=== PATIENT | female | born 1975 | race Caucasian/White ===

== ENCOUNTER 2016-02-25 23:16 | Emergency (ER) | payer OTHER ==
[2016-02-25 23:19] VITALS: BP 112/74; PULSE 70; RESP 18; TEMP 97.1
[2016-02-26] MEDS ORDERED: KETOROLAC 60 MG/2 ML VIAL IM STA (00:14)
--- NOTE | 2016-02-26 00:14 | ED ---
General Adult HPI - General Chief complaint: Extremity Problem,Nontraumatic Stated complaint: Hand Pain Time Seen by Provider: 02/25/16 23:35 Source: patient, RN notes reviewed, old records reviewed Mode of arrival: ambulatory Limitations: no limitations - History of Present Illness Initial comments: This is a 4-year-old female ER for evaluation. Patient is here for reevaluation of right wrist pain. patient is right-handed. patient has history of bony injury to that right and right wrist. no significant recent injury. she states she hasn't tingling and pain shooting down her right wrist and weakness in her middle finger. patient denies pain going up to her elbow but she does say the numbness and james does shoot up and down her arm. patient denies any other complaints. - Related Data Home Medications Medication Instructions Recorded Confirmed ALPRAZolam [Xanax] 0.25 mg PO BID PRN 02/25/16 02/25/16 Allergies Allergy/AdvReac Type Severity Reaction Status Date / Time No Known Allergies Allergy Verified 02/25/16 23:30 Review of Systems ROS Statement: Those systems with pertinent positive or pertinent negative responses have been documented in the HPI. ROS Other: All systems not noted in ROS Statement are negative. Past Medical History Past Medical History: No Reported History History of Any Multi-Drug Resistant Organisms: None Reported Past Surgical History: Hysterectomy, Tubal Ligation Additional Past Surgical History / Comment(s): D&C Past Psychological History: No Psychological Hx Reported Smoking Status: Current every day smoker Past Alcohol Use History: Occasional Past Drug Use History: None Reported General Exam Limitations: no limitations General appearance: alert, in no apparent distress Head exam: Present: atraumatic, normocephalic, normal inspection Eye exam: Present: normal appearance, PERRL, EOMI. Absent: scleral icterus, conjunctival injection, periorbital swelling ENT exam: Present: normal exam, mucous membranes moist Neck exam: Present: normal inspection. Absent: tenderness, meningismus, lymphadenopathy Respiratory exam: Present: normal lung sounds bilaterally. Absent: respiratory distress, wheezes, rales, rhonchi, stridor Cardiovascular Exam: Present: regular rate, normal rhythm, normal heart sounds. Absent: systolic murmur, diastolic murmur, rubs, gallop, clicks GI/Abdominal exam: Present: soft, normal bowel sounds. Absent: distended, tenderness, guarding, rebound, rigid Extremities exam: Present: normal inspection, full ROM, normal capillary refill , other (Right wrist positive Tinel, positive Phalen's, decreased okay sign). Absent: tenderness, pedal edema, joint swelling, calf tenderness Back exam: Present: normal inspection Neurological exam: Present: alert, oriented X3, CN II-XII intact Psychiatric exam: Present: normal affect, normal mood Skin exam: Present: warm, dry, intact, normal color. Absent: rash Course Vital Signs 02/25/16 23:17 Temperature 97.1 F L Pulse Rate 70 Respiratory 18 Rate Blood Pressure 112/74 O2 Sat by Pulse 99 Oximetry Medical Decision Making - Medical Decision Making 40 female here for evaluation of wrist pain. Right wrist pain, she does have positive Temple, positive Phalen's, positive reverse Phalen's. Patient does have paresthesia type pain in right wrist mild weakness of the median nerve. Patient will be discharged home, continue anti-inflammatories, encouraged use wrist splint and discharged Disposition Clinical Impression: Carpal tunnel syndrome of right wrist Disposition: HOME SELF-CARE Condition: Good Instructions: Paresthesia (ED) Referrals: Ronni Rowe MD [STAFF PHYSICIAN] - 1-2 days
== END 2016-02-26 01:01 | disposition home or self-care (01) ==
LOC: EC 23:16
DX: G56.01 Carpal tunnel syndrome, right upper limb (principal); F17.200 Nicotine dependence, unspecified, uncomplicated
CPT/HCPCS: 99282; 96372; J1885

== ENCOUNTER 2016-03-29 11:55 | Emergency (ER) | payer OTHER ==
[2016-03-29] MEDS ORDERED: DEXAMETHASONE 4 MG TAB PO STA (12:11)
[2016-03-29] MEDS ORDERED: ONDANSETRON ODT 4 MG TAB PO STA (12:11)
--- NOTE | 2016-03-29 12:21 | ED ---
General Adult HPI - General Chief complaint: Upper Respiratory Infection Stated complaint: SOB, CHEST CONGESTION, SHAKY Time Seen by Provider: 03/29/16 12:02 Source: patient, family, RN notes reviewed, old records reviewed Mode of arrival: wheelchair Limitations: no limitations - History of Present Illness Initial comments: 40-year-old female presenting for cough and sinus congestion. She states her symptoms have been going on for the past 3 days or so. She states she is trying [id number] medications like NyQuil without significant relief. She states she's also been feeling some anxiety. She's dehydrated. She did take some Xanax earlier that didn't seem to help her symptoms either. She did also have 1 episode of diarrhea this morning. She denies any abdominal pain. She does state she has some nausea but has not vomited. She denies any fevers or chills. She does admit to tobacco abuse. - Related Data Home Medications Medication Instructions Recorded Confirmed ALPRAZolam [Xanax] 0.25 mg PO BID PRN 02/25/16 03/29/16 D-Methorphan/PE/Acetaminophen 1 cap PO Q6H PRN 03/29/16 03/29/16 [Vicks Dayquil Liquicaps] Ibuprofen [Motrin] 600 mg PO Q8HR PRN 03/29/16 03/29/16 Previous Rx's Medication Instructions Recorded Ondansetron Odt [Zofran Odt] 4 mg PO Q8HR PRN #12 tab 03/29/16 Allergies Allergy/AdvReac Type Severity Reaction Status Date / Time No Known Allergies Allergy Verified 03/29/16 12:38 Review of Systems ROS Statement: Those systems with pertinent positive or pertinent negative responses have been documented in the HPI. ROS Other: All systems not noted in ROS Statement are negative. Past Medical History Past Medical History: No Reported History History of Any Multi-Drug Resistant Organisms: None Reported Past Surgical History: Hysterectomy, Tubal Ligation Additional Past Surgical History / Comment(s): D&C Past Psychological History: No Psychological Hx Reported Smoking Status: Current every day smoker Past Alcohol Use History: Occasional Past Drug Use History: None Reported General Exam - General Exam Comments Initial Comments: General: Awake and Alert. No acute distress. Does not appear acutely ill. Eyes: FIORELLA, EOM intact. No nystagmus. No scleral icterus. HENT: Atraumatic, normocephalic. Mucous membranes moist. Trachea midline. Nasal mucosal edema and clear rhinorrhea. No posterior pharyngeal edema or erythema. No tonsillar edema. Neck: The neck is supple, there is no tenderness or JVD. Cardiovascular: Regular rate and rhythm. No murmur, rub, or gallop is appreciated. Distal pulses intact. Respiratory: Lungs are clear to auscultation bilaterally. No wheezes, rales, rhonchi. No respiratory distress. Gastrointestinal: Soft, Nontender. No rebound or guarding. Non-distended. No masses or organomegaly noted. No CVA tenderness. Musculoskeletal: No tenderness. Normal ROM. No gross deformity. No strength deficits. Neurological: A&Ox3. CN II-XII grossly intact, There are no obvious motor or sensory deficits. Coordination appears grossly intact. Speech is normal. Skin: Skin is warm and dry and no rashes or lesions are noted. Psychiatric: Cooperative, appears anxious, normal judgment. Limitations: no limitations Course Vital Signs 03/29/16 03/29/16 11:56 12:56 Temperature 97.0 F L 97.4 F L Pulse Rate 91 68 Respiratory 20 18 Rate Blood Pressure 121/60 96/50 O2 Sat by Pulse 100 99 Oximetry Medical Decision Making - Medical Decision Making 40-year-old female presenting for URI symptoms as well as diarrhea and nausea. Discussed likely viral syndrome. Vitals are otherwise stable on exam. She does not appear septic at this time. Chest x-ray was performed which has no acute process. Influenza testing was performed and negative. Discussed supplemental care with ooky-aqn-flbhknq medications. Patient was given a dose of Decadron to help with sinusitis. She was able to tolerate PO without issue. Discussed close follow-up with her PCP. Discussed concerning signs and symptoms for immediate return to the ED. Patient is otherwise stable for discharge at this time. Patient is agreeable with plan of discharge home. - Lab Data Lab Results 03/29/16 Range/Units 12:30 Influenza Type A RNA Not Detected (Not Detectd) Influenza Type B (PCR) Not Detected (Not Detectd) - Radiology Data Radiology results: report reviewed, image reviewed Disposition Clinical Impression: URI (upper respiratory infection), Nausea, Diarrhea, Tobacco abuse Disposition: HOME SELF-CARE Condition: Stable Instructions: Upper Respiratory Infection (ED), Acute Diarrhea (ED), How to Stop Smoking (ED) Additional Instructions: Make sure you stay well hydrated by drinking plenty of fluids. Prescriptions: Ondansetron Odt [Zofran Odt] 4 mg PO Q8HR PRN #12 tab PRN Reason: Nausea Referrals: None,Stated [Primary Care Provider] - 1-2 days Time of Disposition: 13:08
--- NOTE | 2016-03-29 12:54 | XR ---
EXAMINATION TYPE: XR chest 2V DATE OF EXAM: 03/29/2016 12:34 PM COMPARISON: NONE HISTORY: Pain TECHNIQUE: Frontal and lateral views of the chest are obtained. FINDINGS: There is no focal air space opacity, pleural effusion, or pneumothorax seen. The cardiac silhouette size is within normal limits. The osseous structures are intact. IMPRESSION: No acute cardiopulmonary process.
[2016-03-29 12:59] VITALS: BP 96/50; PULSE 68; RESP 18; TEMP 97.4
== END 2016-03-29 13:21 | disposition home or self-care (01) ==
LOC: EC 11:55
DX: J06.9 Acute upper respiratory infection, unspecified (principal); R19.7 Diarrhea, unspecified; F17.200 Nicotine dependence, unspecified, uncomplicated
CPT/HCPCS: 87502; 71020; 99283; J8540

== ENCOUNTER → 2016-05-20 | Outpatient (CLI) | payer OTHER ==
[2016-05-20 09:23] LABS: Basophils % (A) 1 %; CH 30.9; CHCM 32.6; Eosinophils # (A) 0.3 k/uL (0-0.7); Eosinophils % (A) 5 %; HDW 2.18; HGB 13.9 gm/dL (11.4-16.0); Luc # (Auto) 0.21; Luc % (Auto) 4; Lymphocytes % (A) 33 %; MCH 31.6 pg (25.0-35.0); MCHC 33.2 g/dL (31.0-37.0); MCV 95.1 fL (80.0-100.0); Mean Platelet Volume 9.2; Monocytes # (A) 0.3 k/uL (0-1.0); Monocytes % (A) 5 %; Neutrophils # (A) 3.2 k/uL (1.3-7.7); Neutrophils % (A) 53 %; RBC 4.41 m/uL (3.80-5.40); RDW 12.7 % (11.5-15.5)
[2016-05-20 09:43] LABS: ALT 19 U/L (9-52); AST 20 U/L (14-36); Alkaline Phosphatase 42 U/L (38-126); Anion Gap 8 mmol/L; Blood Urea Nitrogen 15 mg/dL (7-17); Calcium 9.4 mg/dL (8.4-10.2); Carbon Dioxide 27 mmol/L (22-30); Chloride 106 mmol/L (98-107); Cholesterol 179 mg/dL (<200); Glucose 90 mg/dL (74-99); HDL Cholesterol 46 mg/dL (40-60); Non-African American GFR(MDRD) >60 (>60 ml/min/1.73 sqM); Potassium 4.9 mmol/L (3.5-5.1); Sodium 141 mmol/L (137-145); Total Bilirubin 0.6 mg/dL (0.2-1.3); Total Protein 7.1 g/dL (6.3-8.2); Triglycerides 202 mg/dL (<150)
[2016-05-20 10:35] LABS: Erythrocyte Sedimentation Rate 4 mm/hr (0-20)
== END | disposition home or self-care (01) ==
LOC: LABWHC1 08:28
PROVIDERS: ATTEND Family Medicine
DX: Z00.00 Encounter for general adult medical examination without abnormal findings (principal); R27.0 Ataxia, unspecified; R20.8 Other disturbances of skin sensation; E55.9 Vitamin D deficiency, unspecified; M62.40 Contracture of muscle, unspecified site
CPT/HCPCS: 36415; 80053; 80061; 82306; 84443; 85025; 85652; 86618

== ENCOUNTER → 2016-05-28 | Outpatient (CLI) | payer OTHER | END | disposition home or self-care (01) | LOC: RADMRIMAIN 09:40 | PROVIDERS: ATTEND Family Medicine | DX: Z53.9 Procedure and treatment not carried out, unspecified reason (principal) ==

== ENCOUNTER 2016-06-02 14:57 | Emergency (ER) | payer OTHER ==
[2016-06-02 15:15] VITALS: RESP 18
--- NOTE | 2016-06-02 16:50 | ED ---
General Adult HPI - General Chief complaint: Anxiety Stated complaint: Panic attack Time Seen by Provider: 06/02/16 16:27 Source: patient, family, RN notes reviewed Mode of arrival: ambulatory - History of Present Illness Initial comments: Chief complaint history of present illness is a 41-year-old female here with her . Patient reports that she has anxiety and sometimes get overly panicked. Occasionally feel short of breath. Denies any suicidal thoughts. The symptoms are getting worse for the past week. She is being worked up for MS. She was unable to do an MRI last week because of the anxiety going inside the MRI tube. - Related Data Home Medications Medication Instructions Recorded Confirmed Naproxen Sodium [Aleve] 220 mg PO BID PRN 06/02/16 06/02/16 Allergies Allergy/AdvReac Type Severity Reaction Status Date / Time No Known Allergies Allergy Verified 06/02/16 16:56 Review of Systems ROS Statement: Those systems with pertinent positive or pertinent negative responses have been documented in the HPI. Review of systems. Patient's denying any headache or visual acuity changes at this time. She reports that when she gets anxious she can hear things going around her. Denies chest pain shortness breath GI/ problems and I suicidal thoughts. All things reviewed. Past medical problem patient used to be on medications for anxiety depression for several months but made her feel paranoid sensation stopped. Around the same time start him symptoms that is causing her physician to work. The possibility of MS. Patient is unable to tolerate being in the MRI machine last week. She will be talking to her family physician about medications to make is that she can do that. Patient surgeries include hysterectomy preceded by D&C and tubal ligation. Family history heart disease. Patient denies any ALLERGIES she does smoke strongly encouraged stop drinks alcohol socially. ROS Other: All systems not noted in ROS Statement are negative. Past Medical History Past Medical History: No Reported History History of Any Multi-Drug Resistant Organisms: None Reported Past Surgical History: Hysterectomy, Tubal Ligation Additional Past Surgical History / Comment(s): D&C Past Psychological History: No Psychological Hx Reported, Anxiety, Depression Smoking Status: Current every day smoker Past Alcohol Use History: Occasional Past Drug Use History: None Reported General Exam - General Exam Comments Initial Comments: General: The patient is awake and alert, in no distress, and does not appear acutely ill. States her complaint is feeling overly anxious at times. History of anxiety and depression. Eye: Pupils are equal, round and reactive to light, extra-ocular movements are intact ; there is normal conjunctiva bilaterally. No signs of icterus. Ears, nose, mouth and throat: There are moist mucous membranes and no oral lesions. Neck: The neck is supple, there is no tenderness , no anterior cervical lymphadenopathy, thyroid not enlarged. Cardiovascular: There is a regular rate and rhythm. No murmur, rub or gallop is appreciated. Respiratory: Lungs are clear to auscultation, respirations are non-labored, breath sounds are equal. No wheezes, stridor, rales, or rhonchi. Gastrointestinal: Soft, non-distended, non-tender abdomen without masses or organomegaly noted. There is no rebound or guarding present. No CVA tenderness. Bowel sounds are unremarkable. Back: There is no tenderness to palpation in the midline. There is no obvious deformity. No rashes noted. Musculoskeletal: Normal ROM, no tenderness, There is no pedal edema. There is no calf tenderness or swelling. Sensation intact. Pulses equal bilaterally 2+. Neurological: CN II-XII intact, There are no obvious motor or sensory deficits. Coordination appears grossly intact. Speech is normal. No focal or lateralizing findings. Skin: Skin is warm and dry and no rashes or lesions are noted. Psychiatric: Cooperative, past history of depression and anxiety. No suicidal thoughts. Course Vital Signs 06/02/16 06/02/16 15:10 17:52 Temperature 98.7 F 98.0 F Pulse Rate 82 68 Respiratory 18 18 Rate Blood Pressure 117/66 106/65 O2 Sat by Pulse 100 97 Oximetry Medical Decision Making - Medical Decision Making Urine triage positive for benzodiazepines. The patient was evaluated by the psychiatric nurse she discussed the case with the psychiatrist. The patient will be seeing her family doctor tomorrow to see the patient be given Xanax 0.5 to be taken to rest and to help her with her anxiety. - Lab Data Lab Results 06/02/16 Range/Units 16:55 Urine Opiates Screen Not Detected (NotDetected) Ur Oxycodone Screen Not Detected (NotDetected) Urine Methadone Screen Not Detected (NotDetected) Ur Propoxyphene Screen Not Detected (NotDetected) Ur Barbiturates Screen Not Detected (NotDetected) U Tricyclic Antidepress Not Detected (NotDetected) Ur Phencyclidine Scrn Not Detected (NotDetected) Ur Amphetamines Screen Not Detected (NotDetected) U Methamphetamines Scrn Not Detected (NotDetected) U Benzodiazepines Scrn Detected H (NotDetected) Urine Cocaine Screen Not Detected (NotDetected) U Marijuana (THC) Screen Not Detected (NotDetected) Disposition Clinical Impression: Acute anxiety Disposition: HOME SELF-CARE Condition: Fair Additional Instructions: This evening used Xanax tablet for help uterine relax. Follow-up with family physician tomorrow. Time of Disposition: 20:41
[2016-06-02] MEDS ORDERED: ALPRAZolam 0.5 MG TAB PO STA (20:41)
[2016-06-02 21:07] VITALS: BP 108/64; PULSE 73; TEMP 97.1
== END 2016-06-02 21:06 | disposition home or self-care (01) ==
LOC: EC 14:57
DX: F41.9 Anxiety disorder, unspecified (principal); R06.02 Shortness of breath; F17.200 Nicotine dependence, unspecified, uncomplicated
CPT/HCPCS: 80306; 82075; 99283

== ENCOUNTER 2018-10-18 06:46 | Day surgery (SDC) | payer OTHER ==
[2018-10-12 15:35] VITALS: BMI 25.8
[~2018-10-18 06:46] MED LIST: LACTATED RINGERS 1,000 ML IV SCH
[2018-10-18] MEDS ORDERED: LIDOCAINE 1% 20 ML VIAL (10MG/ML) FOR IV START INTRADERMA ONE (07:18)
[2018-10-18 07:24] VITALS: TEMP 97.5
--- NOTE | 2018-10-18 07:38 | P.PCN ---
Date of Procedure: 10/18/18 Procedure(s) Performed: Preoperative diagnosis: Demyelinating disease Post operative diagnoses: Demyelinating disease Anesthesia = moderate sedation with Versed 2 mg and fentanyl 50 g ,and local infiltration with lidocaine 1% 2 mL. Condition: stable Complication: none. Description of the procedure procedure risk and benefits discussed with the patient , consent signed. Sedation was given to decrease the patient's anxiety, Patient and the procedure area placed in sitting, monitors applied, position back prepped with chlorhexidine 3 times been local infiltration of the skin and subcutaneous tissue with lidocaine 1% 2 mL for skin and subcu interstitial frustrations at L4 5 levels then 22-gauge Quincke-type needle advanced slowly at L4- 5 interlaminar space there was positive cerebrospinal fluid which was clear, no heme, no paresthesia ,total of 8 ML of clear cerebrospinal fluid collected in 4 different tubes 2 mL in each, then the needle removed and a Band-Aid applied and patient tolerated the procedure well without any complications.
[2018-10-18] MEDS ORDERED: IV FLUID CONTINUATION 550 ML IV ONE (07:42)
[2018-10-18 07:49] VITALS: RESP 16
[2018-10-18 08:12] VITALS: BP 103/67; PULSE 72
[2018-10-18 08:19] LABS: T4, Free (Free Thyroxine) 1.06 ng/dL (0.78-2.19)
[2018-10-18 11:37] LABS: Rheumatoid Factor 11 IU/mL (0-15)
[2018-10-18 12:00] LABS: Anti-Smith Ab Interp NEGATIVE (NEGATIVE); DNA Double-Stranded NEGATIVE (NEGATIVE)
[2018-10-18 12:01] LABS: Glucose,CSF 58 mg/dL (40-70); Total Protein,CSF 51 mg/dL (12-60)
[2018-10-18 13:41] LABS: Appearance,CSF Clear; CSF Tube Number 3
[2018-10-18 13:42] LABS: Nucleated Cells, CSF 1 u/L (0-5); Red Blood Cell,CSF 0 u/L (0-10)
[2018-10-19 09:47] LABS: Lyme IgG/IgM 0.36 Index
[2018-10-19 10:42] LABS: VDRL, Qualitative CSF Nonreactive (Nonreactive)
[2018-10-19 13:12] LABS: APTT 41 Sec(s) (<43); Dilute Russell Viper Venom 39 Sec(s) (<44)
[2018-10-19 13:51] LABS: IgG - CSF 1.7 mg/dL (0.0 - 3.4); IgG/Albumin Index (CSF) 0.39 (0.00 - 0.77); Immunoglobulin G 913 mg/dL (700 - 1600)
== END 2018-10-18 08:26 | disposition home or self-care (01) ==
LOC: ORPAIN 06:46
PROVIDERS: ATTEND Specialist
DX: G37.9 Demyelinating disease of central nervous system, unspecified (principal)
CPT/HCPCS: 86592; 86235 ×3; 84439; 88108; 84157; 82945; 82040; 82042; 82784; 83916; 83873; 84443; 84450; 84460; 85730; 86431; 85613; 89050; 86618; 86780; 86038; 86225; 87801; 62270; J2250; J3010

== ENCOUNTER 2018-10-21 13:19 | Emergency (ER) | payer OTHER ==
[2018-10-21 13:43] VITALS: TEMP 98.1
[2018-10-21] MEDS ORDERED: SODIUM CHLORIDE 0.9% 1,000 ML IV ONE (13:52)
--- NOTE | 2018-10-21 14:09 | ED ---
Headache HPI - General Chief Complaint: Headache Stated Complaint: Headache, neck pain, lumber puncture thursday Time Seen by Provider: 10/21/18 13:51 Mode of arrival: ambulatory Limitations: no limitations - History of Present Illness Initial Comments: 43-year-old female with history of recent lumbar puncture for diagnosis of MS presented today for chief complaint of headache. Patient states she has had a headache since lumbar puncture. She states she has been attempting to lie flat. Patient states that she has had some neck stiffness however she states that she feels she has not moved the position of her neck and feels that this is positional. Patient denies any pain when she lifts her legs she denies photophobia. She states she has had some nausea denies vomiting. Patient denies any fevers or flulike symptoms. Patient contacted her neurology office who recommended patient get a blood patch. They contacted anesthesia, and stated patient should go to the pain clinic for this blood patch. Patient arrived at the pain clinic and was told to come to emergency department. Upon arrival patient appears uncomfortable however nontoxic. She is afebrile vital signs within acceptable limits. No other complaints, patient denies any visual changes, diplopia weakness of the upper or lower extremities changes or any other complaints. - Related Data Home Medications Medication Instructions Recorded Confirmed Ergocalciferol [Vitamin D2] 50,000 unit PO DIRECTED 10/12/18 10/18/18 Simvastatin [Zocor] 5 mg PO HS 10/12/18 10/18/18 Allergies Allergy/AdvReac Type Severity Reaction Status Date / Time No Known Allergies Allergy Verified 10/21/18 13:42 Review of Systems ROS Statement: Those systems with pertinent positive or pertinent negative responses have been documented in the HPI. ROS Other: All systems not noted in ROS Statement are negative. Past Medical History Past Medical History: Hyperlipidemia Additional Past Medical History / Comment(s): occasional migraines, back pain, recent sleep study-no results yet., states feeling weak and fatigued and occasional loss of balance. History of Any Multi-Drug Resistant Organisms: None Reported Past Surgical History: Appendectomy, Hysterectomy, Tubal Ligation Additional Past Surgical History / Comment(s): D&C Past Anesthesia/Blood Transfusion Reactions: No Reported Reaction Past Psychological History: Anxiety Smoking Status: Current every day smoker Past Alcohol Use History: Occasional Past Drug Use History: None Reported - Past Family History Sister(s) Family Medical History: Cancer General Exam - General Exam Comments Initial Comments: General: The patient is awake and alert, in no distress. Eye: +3 mm pupils are equal, round and reactive to light, extra-ocular movements are intact. No APD. No nystagmus. There is normal conjunctiva bilaterally. No signs of icterus. No photophobia Ears, nose, mouth and throat: There are moist mucous membranes and no oral lesions. Neck: The neck is supple, there is no tenderness or JVD. Cardiovascular: There is a regular rate and rhythm. No murmur, rub or gallop is appreciated. Respiratory: Lungs are clear to auscultation, respirations are non-labored, breath sounds are equal. No wheezes, stridor, rales, or rhonchi. Gastrointestinal: Soft, non-distended, non-tender abdomen without masses or organomegaly noted. There is no rebound or guarding present. Musculoskeletal: Normal ROM, no tenderness. Strength 5/5. Sensation intact. Pulses equal bilaterally 2+. Neurological: A&O x 3. CN II-XII intact, There are no obvious motor or sensory deficits. Coordination appears grossly intact. Speech is normal. No pronator drift. NO ataxia. (-) Brudzinski sign. negative Kernig sign. Skin: Skin is warm and dry and no rashes or lesions are noted. Psychiatric: Cooperative, appropriate mood & affect, normal judgment. Limitations: no limitations Course Vital Signs 10/21/18 10/21/18 10/21/18 13:40 13:49 14:53 Temperature 98.1 F 98.1 F Pulse Rate 72 59 L Respiratory 18 14 Rate Blood Pressure 117/79 101/63 O2 Sat by Pulse 98 100 Oximetry 10/21/18 16:27 Temperature 98.1 F Pulse Rate 57 L Respiratory 18 Rate Blood Pressure 101/65 O2 Sat by Pulse 100 Oximetry Medical Decision Making - Medical Decision Making 43-year-old female presenting for headache nausea after lumbar puncture. Consent for blood patch. Discussed case with him provider we will attempt symptomatic treatment first. Patient is given IV fluids and morphine Toradol and Zofran. Patient upon reevaluation states she is feeling better. She states that she would like to forego a blood patch for the time being as she is feeling better and her headache has resolved. Patient had no focal neurological deficits. She was afebrile. Patient had no signs of nuchal irritation on examination. No photophobia. Patient has no white blood cell count and appears nontoxic. Return parameters were discussed patient verbalizes understanding. I recommended patient follow up outpatient with her neurologist. After discussed the case again mentating provider he is agreeable with outpatient discharge at this time, no further orders. - Lab Data Result diagrams: 10/21/18 14:52 10/21/18 14:52 Lab Results 10/21/18 10/21/18 Range/Units 14:52 14:52 WBC 8.1 (3.8-10.6) k/uL RBC 4.73 (3.80-5.40) m/uL Hgb 14.6 (11.4-16.0) gm/dL Hct 43.7 (34.0-46.0) % MCV 92.4 (80.0-100.0) fL MCH 30.8 (25.0-35.0) pg MCHC 33.3 (31.0-37.0) g/dL RDW 13.1 (11.5-15.5) % Plt Count 214 (150-450) k/uL Neutrophils % 69 % Lymphocytes % 20 % Monocytes % 5 % Eosinophils % 3 % Basophils % 1 % Neutrophils # 5.6 (1.3-7.7) k/uL Lymphocytes # 1.6 (1.0-4.8) k/uL Monocytes # 0.4 (0-1.0) k/uL Eosinophils # 0.2 (0-0.7) k/uL Basophils # 0.1 (0-0.2) k/uL Sodium 142 (137-145) mmol/L Potassium 4.9 (3.5-5.1) mmol/L Chloride 108 H (98-107) mmol/L Carbon Dioxide 25 (22-30) mmol/L Anion Gap 9 mmol/L BUN 10 (7-17) mg/dL Creatinine 0.74 (0.52-1.04) mg/dL Est GFR (CKD-EPI)AfAm >90 (>60 ml/min/1.73 sqM) Est GFR (CKD-EPI)NonAf >90 (>60 ml/min/1.73 sqM) Glucose 99 (74-99) mg/dL Calcium 9.7 (8.4-10.2) mg/dL Total Bilirubin 0.3 (0.2-1.3) mg/dL AST 18 (14-36) U/L ALT 17 (9-52) U/L Alkaline Phosphatase 65 (38-126) U/L Total Protein 7.6 (6.3-8.2) g/dL Albumin 4.5 (3.5-5.0) g/dL Disposition Clinical Impression: Headache following lumbar puncture, Headache Disposition: HOME SELF-CARE Condition: Good Instructions (If sedation given, give patient instructions): Lumbar Puncture (ED) Additional Instructions: Please use medication as discussed. Please follow-up with family doctor in the next 2 days. Please return to emergency room if the symptoms increase or worsen or for any other concerns-fever, neck stiffness, pain with lifting legs in neck, flu like symptoms, visual changes, vomiting. Is patient prescribed a controlled substance at d/c from ED?: No Referrals: Idania Yung MD [Primary Care Provider] - 1-2 days Time of Disposition: 16:11
[2018-10-21] MEDS ORDERED: ONDANSETRON 4 MG/2 ML VIAL IVP STA (14:36)
[2018-10-21] MEDS ORDERED: KETOROLAC 30 MG/ML 1 ML VIAL IVP STA (14:36)
[2018-10-21] MEDS ORDERED: MORPHINE SULFATE 2 MG/ML SYRINGE IVP STA (14:36)
[2018-10-21 15:00] LABS: Basophils # (A) 0.1 k/uL (0-0.2); Basophils % (A) 1 %; Eosinophils # (A) 0.2 k/uL (0-0.7); Eosinophils % (A) 3 %; HCT 43.7 % (34.0-46.0); HGB 14.6 gm/dL (11.4-16.0); Lymphocytes # (A) 1.6 k/uL (1.0-4.8); Lymphocytes % (A) 20 %; MCH 30.8 pg (25.0-35.0); MCHC 33.3 g/dL (31.0-37.0); MCV 92.4 fL (80.0-100.0); Monocytes # (A) 0.4 k/uL (0-1.0); Monocytes % (A) 5 %; Neutrophils # (A) 5.6 k/uL (1.3-7.7); Neutrophils % (A) 69 %; Platelet Count 214 k/uL (150-450); RBC 4.73 m/uL (3.80-5.40); RDW 13.1 % (11.5-15.5); WBC 8.1 k/uL (3.8-10.6)
[2018-10-21 15:09] LABS: ALT 17 U/L (9-52); AST 18 U/L (14-36); African American GFR (CKD) >90 (>60 ml/min/1.73 sqM); Albumin 4.5 g/dL (3.5-5.0); Alkaline Phosphatase 65 U/L (38-126); Anion Gap 9 mmol/L; Blood Urea Nitrogen 10 mg/dL (7-17); Calcium 9.7 mg/dL (8.4-10.2); Carbon Dioxide 25 mmol/L (22-30); Chloride 108 mmol/L (98-107); Glucose 99 mg/dL (74-99); Potassium 4.9 mmol/L (3.5-5.1); Sodium 142 mmol/L (137-145); Total Bilirubin 0.3 mg/dL (0.2-1.3); Total Protein 7.6 g/dL (6.3-8.2)
[2018-10-21 16:54] VITALS: BP 101/65; PULSE 57; RESP 18
== END 2018-10-21 16:27 | disposition home or self-care (01) ==
LOC: EC 13:19
DX: G97.1 Other reaction to spinal and lumbar puncture (principal); R51 Headache; R11.0 Nausea; G35 Multiple sclerosis; F17.200 Nicotine dependence, unspecified, uncomplicated; E78.5 Hyperlipidemia, unspecified; Z79.899 Other long term (current) drug therapy; Y84.4 Aspiration of fluid as the cause of abnormal reaction of the patient, or of later complication, without mention of misadventure at the time of the procedure
CPT/HCPCS: 36415; 80053; 85025; 99284; 96374; 96375 ×2; 96361; J2405; J1885; J2270

== ENCOUNTER → 2018-11-16 | Outpatient (CLI) | payer OTHER ==
--- NOTE | 2018-11-16 11:29 | MR ---
EXAMINATION TYPE: MR cervical spine wo con DATE OF EXAM: 11/16/2018 COMPARISON: None HISTORY: paresthesis TECHNIQUE: Multiplanar, multisequence images of the cervical spine were acquired. C2-C3: No evidence for degenerative disc disease. No disc bulge/herniation or protrusion. No Canal stenosis. Foramina are patent bilaterally. C3-C4: No evidence for degenerative disc disease. No disc bulge/herniation or protrusion. No Canal stenosis. Foramina are patent bilaterally. C4-C5: No evidence for degenerative disc disease. No disc bulge/herniation or protrusion. No Canal stenosis. Foramina are patent bilaterally. C5-C6: There is degenerative disc disease with discogenic marrow changes. Broad-based central disc pr otrusion with moderate effacement of thecal sac. This encroaches upon the anterior margin the spinal cord. Uncovertebral joint hypertrophy and facet arthropathy contribute to moderate to severe bilatera l foraminal encroachment and mild canal stenosis. C6-C7: Broad-based central and right paracentral disc bulging. Uncovertebral joint hypertrophy contri butes to mild right-sided foraminal encroachment. C7-T1: No evidence for degenerative disc disease. No disc bulge/herniation or protrusion. No Canal stenosis. Foramina are patent bilaterally. Cervical segments are intact. Loss the normal cervical lordosis.. Cervical spinal cord is of normal signal. Craniovertebral junction relationships are within normal limits. IMPRESSION: Degenerative disc disease C5-C6 with broad-based disc protrusion and hypertrophic changes contribute to mild canal stenosis and moderate to severe bilateral foraminal encroachment. Broad-based central and right paracentral disc bulging with hypertrophic changes result in mild right foraminal encroachment C6-C7
== END ==
LOC: RADMRIMAIN 09:57
PROVIDERS: ATTEND Psychiatry & Neurology Neurology
DX: M48.02 Spinal stenosis, cervical region (principal); M50.222 Other cervical disc displacement at C5-C6 level; M50.322 Other cervical disc degeneration at C5-C6 level
CPT/HCPCS: 72141